=== PATIENT | male | born 1965 | race Caucasian/White ===

== ENCOUNTER 2017-06-28 12:02 | Emergency (ER) | payer OTHER ==
[~2017-06-28] VITALS: Wt 78.2 kg
[2017-06-28] MEDS ORDERED: LIDOCAINE 1% (MDV) 10 ML INJ INJ STA (13:05)
[2017-06-28] MEDS ORDERED: IBUPROFEN 600 MG TAB PO ONE (13:30)
[2017-06-28] MEDS ORDERED: HYDROCODONE/APAP (5/325) TAB PO ONE (13:30)
[2017-06-28] MEDS ORDERED: ACET1TAB40 PO (14:32)
[2017-06-28] MEDS ORDERED: IBUP-1542 PO (14:32)
--- NOTE | 2017-06-28 14:38 | ERD ---
ER Documentation Chief Complaint Date/Time DATE: 06/28/17 TIME: 14:36 Chief Complaint r. thumb lac HPI This 51-year-old male sustained a laceration of the tip of his right thumb with a stable salt today. His tetanus is up-to-date. He has no restricted range of motion or weakness ROS All systems reviewed and are negative except as per history of present illness. Medications Home Meds Active Scripts Acetaminophen with Codeine (Acetaminophen-Cod #3 Tablet) 1 Each Tablet, 1 TAB PO Q6H Y for PAIN, #7 TAB Prov:YAO THOMAS MD 06/28/17 Ibuprofen* (Motrin*) 600 Mg Tab, 600 MG PO Q6, #15 TAB Prov:YAO THOMAS MD 06/28/17 Allergies Allergies: Coded Allergies: No Known Allergy (Unverified , 06/28/17) PMhx/Soc Medical and Surgical Hx: pt denies Medical Hx, pt denies Surgical Hx Hx Alcohol Use: No Hx Substance Use: No Hx Tobacco Use: Yes Smoking Status: Current some day smoker Physical Exam Vitals Vital Signs Date Time Temp Pulse Resp B/P Pulse Ox O2 Delivery O2 Flow Rate FiO2 06/28/17 12:04 98.0 103 20 162/103 99 Physical Exam Const: [], [id number] Head: Atraumatic Eyes: Normal Conjunctiva ENT: Normal External Ears, Nose and Mouth. Neck: Full range of motion..~ No meningismus. Resp: Clear to auscultation bilaterally Cardio: Regular rate and rhythm, no murmurs Abd: Soft, non tender, non distended. Normal bowel sounds Skin: No petechiae or rashes Back: No midline or flank tenderness Ext: No cyanosis, or edema. There is a 1 cm laceration through the tip of the right thumb. There is no appreciable exposed bone or deformities patient has full range of motion of the DIP joint of the thumb without evidence of tendon deficits or ischemia. Neur: Awake and alert Psych: Normal Mood and Affect Results 24 hrs Current Medications Medications (Trade) Dose Ordered Sig/Wicho Route PRN Reason Start Time Stop Time Status Last Admin Dose Admin Ibuprofen (Motrin) 600 mg ONCE ONCE PO 06/28/17 13:30 06/28/17 13:31 DC 06/28/17 13:17 Acetaminophen/ Hydrocodone Bitart ([place] (5/325)) 1 tab ONCE ONCE PO 06/28/17 13:30 06/28/17 13:31 DC 06/28/17 13:17 Lidocaine HCl (Lidocaine 1% (Mdv) 10 ml) 10 ml ONCE STAT INJ 06/28/17 13:05 06/28/17 13:07 DC 06/28/17 13:17 Procedures/MDM X-ray right thumb 2V Interpreted by me: Bones: [No fracture] Joints: [No dislocation] Foreign body: [None]. Impression-normal right thumb x-ray Patient was given p.o. pain medication. Procedure note-the rectum was irrigated copiously with normal saline. 3 cc of lidocaine was used to perform a digital block. Anesthesia was obtained. 4 4-0 nylon sutures were used to reapproximate the wound. Patient tolerated procedure well. Wound was dressed. Patient presents with an isolated laceration of his rectum without evidence of deficits, ischemia, bacterial infection. We discharged home instructions for wound check in 2 days and suture removal in 7 days. He should return sooner for fevers, redness, new worsening symptoms. Departure Diagnosis: Primary Impression: Laceration Condition: Stable Patient Instructions: Laceration, All Additional Instructions: cheque 2 rose para cheque para infeccion. cheque 7 rose para saca los puntos / grapas. YAO THOMAS MD Jun 28, 2017 14:37
--- NOTE | 2017-06-28 14:44 | RADRPT ---
PROCEDURE: XR Finger. CLINICAL INDICATION: Right thumb pain. TECHNIQUE: Three views of the right thumb. COMPARISON: None. FINDINGS: The osseous structures are intact. No destructive bony lesions are observed. Interosseous spaces alma delia ear normal. Mild soft tissue irregularity over the tuft of the first distal phalanx may reflect the site of soft tissue laceration. IMPRESSION: Mild soft tissue irregularity over the tuft of the first distal phalanx and may reflect the site of soft tissue laceration. Otherwise, unremarkable exam. If there is high clinical suspicion for bony traumatic injury, further evaluation with CT should be considered. No visualized radiopaque foreign body. Please note that certain materials such as wood are radioluc ent on x-ray. If there is clinical suspicion for foreign body, further characterization with CT clifford uld should be considered. RPTAT: AA .Sanjay Ortiz MD, MD Date Time Electronically viewed and signed by .Sanjay Ortiz MD, MD on 06/28/2017 14:44 .P/
== END 2017-06-28 14:50 | disposition home or self-care (01) ==
LOC: FTE 12:02
DX: S61.011A Laceration without foreign body of right thumb without damage to nail, initial encounter (principal); F17.210 Nicotine dependence, cigarettes, uncomplicated; W22.8XXA Striking against or struck by other objects, initial encounter; Y92.9 Unspecified place or not applicable
CPT/HCPCS: 73140

== ENCOUNTER 2017-07-01 08:48 | Emergency (ER) | payer SELFPAY ==
[~2017-07-01] VITALS: Wt 80.0 kg
[~2017-07-01 08:48] MED LIST: ACET1TAB40 PO; IBUP-1542 PO
--- NOTE | 2017-07-01 12:14 | ERD ---
ER Documentation Chief Complaint Date/Time DATE: 07/01/17 TIME: 12:09 Chief Complaint R THUMB LAC RECHECK HPI This is a 51 year old male presenting to ER for wound check after suture placement. Patient had 3 sutures placed to right thumb 3 days ago after skill saw injury. Denies numbness/tingling or loss of sensation. No pain. No discharge, warmth, erythema, abscess or induration. No fevers. ROS All systems reviewed and are negative except as per history of present illness. Medications Home Meds Active Scripts Acetaminophen with Codeine (Acetaminophen-Cod #3 Tablet) 1 Each Tablet, 1 TAB PO Q6H Y for PAIN, #7 TAB Prov:YAO THOMAS MD 06/28/17 Ibuprofen* (Motrin*) 600 Mg Tab, 600 MG PO Q6, #15 TAB Prov:YAO THOMAS MD 06/28/17 Allergies Allergies: Coded Allergies: No Known Allergy (Unverified , 06/28/17) PMhx/Soc Medical and Surgical Hx: pt denies Medical Hx, pt denies Surgical Hx Hx Alcohol Use: No Hx Substance Use: No Hx Tobacco Use: Yes Smoking Status: Current some day smoker Physical Exam Vitals Vital Signs Date Time Temp Pulse Resp B/P Pulse Ox O2 Delivery O2 Flow Rate FiO2 07/01/17 08:54 98.0 80 18 142/84 99 Physical Exam Const: No acute distress, alert Head: Atraumatic Eyes: Normal Conjunctiva ENT: Normal External Ears, Nose and Mouth. Neck: Full range of motion..~ No meningismus. Resp: Clear to auscultation bilaterally Cardio: Regular rate and rhythm, no murmurs Abd: Soft, non tender, non distended. Normal bowel sounds Skin: 3 sutures placed to right distal thumb. No discharge, warmth, erythema , abscess or induration. Back: No midline or flank tenderness Ext: No cyanosis, or edema Neur: Awake and alert Psych: Normal Mood and Affect Procedures/MDM MDM: 51 year old male presents to ER for wound check after laceration repair 3 days ago. No s/s infection. Sutures are in place to right distal thumb without evidence of erythema, warmth, drainage or bleeding. No fevers. Instructed patient and patient's daughter to follow up in 5 days for suture removal. Return to ED for any high fever, chest pain, difficulty breathing, shortness breath, wheezing, vomiting, diarrhea, abdominal pain or any new or worsening symptoms. Patient verbalizes understanding. All questions answered at discharge. Romansh translation used during this encounter. Departure Diagnosis: Primary Impression: Follow-up examination for injury Condition: Stable Patient Instructions: Wound Check, Lac F/U (No Infection) [facility] Usted se lima hecho un examen mdico de control que le indica que no est en roya condicin que requiera tratamiento urgente en el Departamento de Emergencia. Un estudio ms profundo y el tratamiento de tatum condicin pueden esperar sin ningn riesgo hasta que usted sea atendida/o en el consultorio de tatum mdico o roya cl silvia. Es responsabilidad suya arreglar roya anahy para el seguimiento del aislinn. MANEJO DE CONDICIONES NO URGENTES EN EL FUTURO 1) Si usted tiene un mdico de atencin primaria: Usted debera llamar a tatum mdico de atencin primaria antes de venir al departamento de emergencia. Despus de las horas de consultorio, tatum doctor o tatum asociado/a est disponible por telfono. El mdico o enfermero de rene en el servicio telefnico puede asesorarle por kym medio para atender el problema, o aislinn contrario se puede programar roya anahy. 2) Si usted no tiene un mdico de atencin primaria: Llame al mdico o clnica de referencia que aparece abajo roscoe las horas de consultorio para hacer roya anahy para que le vean. CLINICAS: [facility] [phone] [address] [facility] [phone] [facility] [phone] [facility] [phone] [place] [phone] [address] [facility] [phone] [facility] () Ni se lima hecho un examen mdico de control que le indica que no est en roya condicin que requiera tratamiento urgente en el Departamento de Emergencia. Un estudio ms profundo y el tratamiento de tatum condicin pueden esperar sin ningn riesgo hasta que usted sea atendida/o en el consultorio de tatum mdico o roya cl silvia. Es responsabilidad suya arreglar roya anahy para el seguimiento del aislinn. MANEJO DE CONDICIONES NO URGENTES EN EL FUTURO 1) Si usted tiene un mdico de atencin primaria: Usted debera llamar a tatum mdico de atencin primaria antes de venir al departamento de emergencia. Despus de las horas de consultorio, tatum doctor o tatum asociado/a est disponible por telfono. El mdico o enfermero de rene en el servicio telefnico puede asesorarle por kym medio para atender el problema, o aislinn contrario se puede programar roya anahy. 2) Si usted no tiene un mdico de atencin primaria: Llame al mdico o condado institucions de referencia que aparece abajo roscoe las horas de consultorio para hacer roya anahy para que le vean. SI USTED NO PUEDE PAGAR PARA HUGH UN MEDICO puede ir a: [facility] [address] [place] [address] [facility] [address] [place] [address] [facility] [address] [place] [address] [facility] [address] [place] [address] Additional Instructions: SUTURE REMOVAL:CONSULTE A TATUM MDICO PARA SACAR TATUM PUNTOS.PARA LA BRUCE 5-6 d as.EN OTRO LUGAR 7-10 landa. CHAYA OAKES NP Jul 01, 2017 12:14
== END 2017-07-01 09:35 | disposition home or self-care (01) ==
LOC: FTE 08:48
DX: Z48.01 Encounter for change or removal of surgical wound dressing (principal); F17.210 Nicotine dependence, cigarettes, uncomplicated
CPT/HCPCS: 99281

== ENCOUNTER 2017-07-08 09:17 | Emergency (ER) | payer SELFPAY ==
[~2017-07-08] VITALS: Ht 165.1 cm; Wt 79.0 kg
[2017-07-08 09:33] VITALS: Ht 165.1 cm; Wt 79.0 kg
--- NOTE | 2017-07-08 10:47 | ERD ---
ER Documentation Chief Complaint Date/Time DATE: 07/08/17 TIME: 10:45 Chief Complaint ENCOUNTER FOR SUTURE REMOVAL FROM RT THUMB HPI 51-year-old male presents for suture removal from the right thumb that occurred from a saw injury a week ago..Patient denies any pain, drainage, fevers or chills or paresthesias or weakness. ROS All systems reviewed and are negative except as per history of present illness. Medications Home Meds Active Scripts Acetaminophen with Codeine (Acetaminophen-Cod #3 Tablet) 1 Each Tablet, 1 TAB PO Q6H Y for PAIN, #7 TAB Prov:YAO THOMAS MD 06/28/17 Ibuprofen* (Motrin*) 600 Mg Tab, 600 MG PO Q6, #15 TAB Prov:YAO THOMAS MD 06/28/17 Allergies Allergies: Coded Allergies: No Known Allergy (Unverified , 06/28/17) PMhx/Soc Medical and Surgical Hx: pt denies Medical Hx, pt denies Surgical Hx Hx Alcohol Use: No Hx Substance Use: No Hx Tobacco Use: Yes Smoking Status: Current every day smoker Physical Exam Vitals Vital Signs Date Time Temp Pulse Resp B/P Pulse Ox O2 Delivery O2 Flow Rate FiO2 07/08/17 09:33 98.4 73 16 165/94 99 Physical Exam General: Well-developed, well-nourished. The patient appears in no acute distress. HEENT: Head is normocephalic, atraumatic. No scleral icterus. Neck: Supple. Nontender. Lungs: Clear to auscultation. Normal air movement. Heart: Regular rate and rhythm. S1 and S2 are normal. No murmurs, gallops, or rubs. Abdomen: Nondistended. Extremities: Healed laceration over the right thumb pad, there are 3 simple interrupted sutures that are intact without any dehiscence or erythema. He is able to flex and extend at the IP joint. Neurologic: Alert and oriented 3. No focal deficits. Normal speech and gait. Skin: Normal turgor. No rash or lesions. Procedures/MDM Suture Removal by me: Sutures removed with tweezers and scissors without incident. Wound shows no evidence of infection, foreign body, neurologic injury, vascular injury, open joint or tendon laceration. Patient to follow up PRN. Patient's blood pressure was elevated (>120/80) but appears stable without evidence of hypertension emergency or urgency. The patient was counseled about the risks of hypertension and urged to pursue outpatient monitoring and therapy within a week with their primary care physician. Departure Diagnosis: Primary Impression: Visit for suture removal Condition: Good Patient Instructions: Suture Removal, No Complication ISABEL BOYD PA-C Jul 08, 2017 10:47
== END 2017-07-08 10:10 | disposition home or self-care (01) ==
LOC: FTE 09:17
DX: Z48.02 Encounter for removal of sutures (principal); F17.210 Nicotine dependence, cigarettes, uncomplicated
CPT/HCPCS: 99281